=== PATIENT | male | born 1995 | race Two or more races ===

== ENCOUNTER 2021-04-13 17:32 | Emergency (ER) | payer OTHER | END 2021-04-13 18:00 | disposition left against medical advice (07) | LOC: ER 17:32 | DX: Z53.20 Procedure and treatment not carried out because of patient's decision for unspecified reasons (principal) ==

== ENCOUNTER 2021-04-18 11:17 | Emergency (ER) | payer OTHER ==
[~2021-04-18] VITALS: Ht 182.9 cm; Wt 63.5 kg
== END 2021-04-18 14:05 | disposition home or self-care (01) ==
LOC: ER 11:17
DX: Z48.02 Encounter for removal of sutures (principal)